=== PATIENT | male | born 1970 | race Caucasian/White ===

== ENCOUNTER 2025-06-16 11:31 | Emergency (ER) | payer OTHER, SELFPAY ==
--- OUTSIDE RECORDS SUMMARY | 2025-06-16 11:34 | XMS_ITS | Patient Health Record ---
Author Organization Formerly [facility] Address [address] [place] [address] Care Team Providers Care Knife Grinder Name Role Phone Watkins, Bob Primary Care Provider [phone] Arun Ocampo Unavailable [phone] Annie Vargas Unavailable [phone] Alice Taylor Unavailable [phone] Daniella Emerson Unavailable [phone] Chula Michaels Unavailable [phone] Allergies Allergen (clinical drug ingredient) Drug/Non Drug Allergy documented on EMR Reaction Allergy Type Onset Date Status Penicillin Unknown Drug Allergy Active Results Component Value Reference Range Notes Buprenorphine and Metabolite (Urine test) Reviewed date:02/13/2025 10:02:17 AM Interpretation: Performing Lab:[facility], [address] [facility], [place], Phone - [phone], Director - [facility] Notes/Report: Clinical Information:[id number] Buprenorphine Positive Confirmation performed by Mass Spectrometry Buprenorphine Positive Buprenorphine Conf, MS, UR 367 Cutoff=10 ng/m L Norbuprenorphine Positive Norbuprenorphine Conf, MS, UR 767 Cutoff=10 ng/mL 12 Panel Urine Drug Screen Reviewed date:07/25/2024 01:40:15 PM Interpretation: Performing Lab: Notes/Report: THC POS TIFFANI neg MOP (OPI) neg AMP neg MET neg BAR neg BZO neg MDMA neg MTD neg OXY neg PCP neg BUP POS 14 Panel Urine Drug Screen Reviewed date:06/02/2025 10:59:53 AM Interpretation: Performing Lab: Notes/Report: THC POS TIFFANI NEG MOP (OPI) NEG AMP NEG MET NEG BAR NEG BZO NEG MDMA NEG MTD NEG OXY NEG PCP NEG BUP POS TCA NEG FTY NEG 14 Panel Urine Drug Screen Reviewed date:05/04/2025 11:13:03 AM Interpretation: Performing Lab: Notes/Report: THC POS TIFFANI neg MOP (OPI) neg AMP neg MET neg BAR neg BZO neg MDMA neg MTD neg OXY neg PCP neg BUP POS TCA neg FTY neg 14 Panel Urine Drug Screen Reviewed date:04/06/2025 11:00:25 AM Interpretation: Performing Lab: Notes/Report: THC POS TIFFANI neg MOP (OPI) neg AMP neg MET neg BAR neg BZO neg MDMA neg MTD neg OXY neg PCP neg BUP POS TCA neg FTY neg 14 Panel Urine Drug Screen Reviewed date:03/09/2025 10:59:34 AM Interpretation: Performing Lab: Notes/Report: THC POS TIFFANI neg MOP (OPI) neg AMP neg MET neg BAR neg BZO neg MDMA neg MTD neg OXY neg PCP neg BUP POS TCA neg FTY neg 14 Panel Urine Drug Screen Reviewed date:02/09/2025 10:37:48 AM Interpretation: Performing Lab: Notes/Report: THC POS TIFFANI neg MOP (OPI) neg AMP neg MET neg BAR neg BZO neg MDMA neg MTD neg OXY neg PCP neg BUP POS TCA neg FTY neg 12 Panel Urine Drug Screen Reviewed date:12/14/2024 01:38:24 PM Interpretation: Performing Lab: Notes/Report: THC POS TIFFANI neg MOP (OPI) neg AMP neg MET neg BAR neg BZO neg MDMA neg MTD neg OXY neg PCP neg BUP POS 12 Panel Urine Drug Screen Reviewed date:11/18/2024 10:40:22 AM Interpretation: Performing Lab: Notes/Report: THC POS TIFFANI neg MOP (OPI) neg AMP neg MET neg BAR neg BZO neg MDMA neg MTD neg OXY neg PCP neg BUP POS 12 Panel Urine Drug Screen Reviewed date:10/19/2024 10:33:09 AM Interpretation: Performing Lab: Notes/Report: THC POS TIFFANI neg MOP (OPI) neg AMP neg MET neg BAR neg BZO neg MDMA neg MTD neg OXY neg PCP neg BUP POS 12 Panel Urine Drug Screen Reviewed date:08/23/2024 10:34:10 AM Interpretation: Performing Lab: Notes/Report: THC POS TIFFANI neg MOP (OPI) neg AMP neg MET neg BAR neg BZO neg MDMA neg MTD neg OXY neg PCP neg BUP POS 12 Panel Urine Drug Screen Reviewed date:06/27/2024 10:29:02 AM Interpretation: Performing Lab: Notes/Report: THC POS TIFFANI neg MOP (OPI) neg AMP neg MET neg BAR neg BZO neg MDMA neg MTD neg OXY neg PCP neg BUP POS Rapid Plasma Reagin (RPR) Te st With Reflex to Quantitative RPR and Confirmatory Treponema pallidum Antibodies Reviewed date:05/16/2025 09:20:33 AM Interpretation: Performing Lab:[facility], [address] [facility] Phone - [phone], Director - [facility] Notes/Report: RPR Non Reactive Non Reactive QuantiFERON-TB Gold Plus (18 1343) Reviewed date:05/16/2025 09:20:32 AM Interpretation: Performing Lab:[facility], [address] [facility] Phone - [phone], Director - [facility] Notes/Report: QuantiFERON Incubation Incubation performed. QuantiFERON-TB Gold Plus Negative Negative No response to M tuberculosis antigens detected. Infection with M tuberculosis is unlikely, but high risk individuals should be considered for additional testing (ATS/IDSA/CDC Clinical Practice Guidelines, 2017). The reference range is an Antigen minus Nil result of <0.35 IU/mL. Chemiluminescence immunoassay methodology QuantiFERON Criteria QuantiFERON-TB Gold Plus is a qualitative indirect test for M tuberculosis infection (including disease) and is intended for use in conjunction with risk assessment, radiography, and other medical and diagnostic evaluations. The QuantiFERON-TB Gold Plus result is determined by subtracting the Nil value from either TB antigen (Ag) value. The Mitogen tube serves as a control for the test. QuantiFERON TB1 Ag Value 0.04 QuantiFERON TB2 Ag Value 0.03 QuantiFERON Nil Value 0.05 QuantiFERON Mitogen Value >10.00 TSH Rfx on Abnormal to Free T4 Reviewed date:05/16/2025 09:20:32 AM Interpretation: Performing Lab:[facility], [address] [facility], Phone - [phone], Director - [facility] Notes/Report: TSH 1.350 0.450-4.500 uIU/mL CMP 14 Comprehensive Metabol ic Panel* Reviewed date:05/16/2025 09:20:32 AM Interpretation: Performing Lab:[facility], [address] [facility] Phone - [phone], Director - Shari Notes/Report: Glucose 98 70-99 mg/dL BUN 15 6-24 mg/dL Creatinine 0.84 0.76-1.27 mg/dL eGFR 102 >59 mL/min/1.73 BUN/Creatinine Ratio 18 9-20 Sodium 139 134-144 mmol/L Potassium 4.6 3.5-5.2 mmol/L Chloride 102 96-106 mmol/L Carbon Dioxide, Total 22 20-29 mmol/L Calcium 9.8 8.7-10.2 mg/dL Protein, Total 7.2 6.0-8.5 g/dL Albumin 4.5 3.8-4.9 g/dL Globulin, Total 2.7 1.5-4.5 g/dL Bilirubin, Total 0.5 0.0-1.2 mg/dL Alkaline Phosphatase 92 47-123 IU/L AST (SGOT) 26 0-40 IU/L ALT (SGPT) 25 0-44 IU/L Lipid Panel* Reviewed date:05/16/2025 09:20:32 AM Interpretation: Performing Lab[facility], [address] [facility] Phone - [phone], Director - Shari Notes/Report: Cholesterol, Total 199 100-199 mg/dL Triglycerides 137 0-149 mg/dL HDL Cholesterol 29 >39 mg/dL VLDL Cholesterol [place] 25 5-40 mg/dL LDL Chol Calc ([facility]) 145 0-99 mg/dL Hepatitis C Virus Antibody w /Rflx to Quantitative Real-time PCR (133561) Reviewed date:05/16/2025 09:20:32 AM Interpretation: Performing Lab:[facility], [address] [facility] Phone - [phone], [facility] Notes/Report: HCV Ab Reactive Non Reactive Hepatitis C Quantitation HCV Not Detected Test Information: The quanti tative range of this assay is 15 IU/mL to 100 million IU/mL. Interpretation: Positive HCV antibody screen without the presence of HCV RNA is consistent with a resolved past infection or a false positive HCV antibody. Consider repeat testing after one month. Hepatitis B Surface Antigen (HBsAg Screen) Reviewed date:05/16/2025 09:20:32 AM Interpretation: Performing Lab:[facility], [address] [facility] Phone - [phone], Director - [facility] Notes/Report: HBsAg Screen Negative Negative CBC With Differential/Platel et* Reviewed date:05/16/2025 09:20:32 AM Interpretation: Performing Lab:[facility] [place], [address] [facility] Phone - [phone], Director - [facility] Notes/Report: WBC 6.3 3.4-10.8 x10E3/uL RBC 4.64 4.14-5.80 x10E6/uL Hemoglobin 14.3 13.0-17.7 g/dL Hematocrit 44.6 37.5-51.0 % MCV 96 79-97 fL MCH 30.8 26.6-33.0 pg MCHC 32.1 31.5-35.7 g/dL RDW 13.1 11.6-15.4 % Platelets 277 150-450 x10E3/uL Neutrophils 52 Not Estab. % Lymphs 34 Not Estab. % Monocytes 7 Not Estab. % Eos 6 Not Estab. % Basos 1 Not Estab. % Neutrophils (Absolute) 3.3 1.4-7.0 x10E3/uL Lymphs (Absolute) 2.2 0.7-3.1 x10E3/uL Monocytes(Absolute) 0.5 0.1-0.9 x10E3/uL Eos (Absolute) 0.4 0.0-0.4 x10E3/uL Baso (Absolute) 0.0 0.0-0.2 x10E3/uL Immature Granulocytes 0 Not Estab. % Immature Grans (Abs) 0.0 0.0-0.1 x10E3/uL Testosterone, Serum Reviewed date:05/16/2025 09:20:32 AM Interpretation: Performing Lab:[facility] [place], [address] [facility], [place], Phone - [phone], Director - [facility] Notes/Report: Testosterone 238 264-916 ng/dL Adult male reference interval is based on a population of healthy nonobese males (BMI <30) between 19 and 39 years old. Tai et.al. JCEM 2017,102;3911-9201. PMID: 86885686. Hemoglobin A1c* Reviewed date:05/16/2025 09:20:32 AM Interpretation: Performing Lab:[facility] [place], [address] [facility] Phone - [phone], [facility] Notes/Report: Hemoglobin A1c 5.8 4.8-5.6 % . Prediabetes: 5.7 - 6.4 Diabetes: >6.4 Glycemic control for adults with diabetes: <7.0 HIV Screen *HIV 1, 2 Ab, p24 Ag (686504) Reviewed date:05/16/2025 09:20:32 AM Interpretation: Performing Lab:[facility] [place], [address] [facility] Phone - [phone], [facility] Notes/Report: HIV Ab/p24 Ag Screen Non Reactive Non Reactive HIV-1/HIV-2 antibodies and HIV-1 p24 antigen were NOT detected. There is no laboratory evidence of HIV infection. HIV Negative 14 Panel Urine Drug Screen Reviewed date:01/12/2025 09:57:57 AM Interpretation: Performing Lab: Notes/Report: THC POS TIFFANI neg MOP (OPI) neg AMP neg MET neg BAR neg BZO neg MDMA neg MTD neg OXY neg PCP neg BUP POS TCA neg FTY neg 12 Panel Urine Drug Screen Reviewed date:09/20/2024 10:29:39 AM Interpretation: Performing Lab: Notes/Report: THC POS TIFFANI neg MOP (OPI) neg AMP neg MET neg BAR neg BZO neg MDMA neg MTD neg OXY neg PCP neg BUP POS Buprenorphine and Metabolite (Urine test) Reviewed date:07/06/2024 10:22:33 AM Interpretation: Performing Lab:[facility], [address] [employer], [facility], Phone - [phone], Director - [facility] Notes/Report: Clinical Information:[id number] Buprenorphine Positive Confirmation performed by Mass Spectrometry Buprenorphine Positive Buprenorphine Conf, MS, UR 341 Cutoff=10 ng/m L Norbuprenorphine Positive Norbuprenorphine Conf, MS, UR 628 Cutoff=10 ng/mL Reason For Referral Reason Home sleep study wit h reflex to PSG if ANL Diagnosis 1 Sleep apnea in adult (G47.33) Referral Organization [facility] Referring Provider First Name Bob Referring Provider Last Name Roland Referring Provider Speciality Internal M edicine Referred Provider Specialty Sleep Medici ne General Notes Neto MUNGUIA, Erinn Whittaker 08:39:00 AM > Clinical Notes [facility], [facility], [address] [place] [address], phone [phone], fax [phone] Referral Priority Routine Medications Medication SIG (Take, Route, Frequency, Duration) Notes Start Date End Date Status Ibuprofen 800 mg TAKE 1 TABLET BY CHELE TH EVERY 8 HOURS WITH FOOD OR MILK; Duration: 30 Active Testosterone Cypionate 200 MG/ML 1 mL Intramuscular EVERY 2 WEEKS; Duration: 28 days 05/16/2025 Active Buprenorphine HCl-Naloxone HCl 4-1 MG 1 film under the tongue and allow to dissolve Sublingual twice a day; Duration: 30 days 06/02/2025 Active Buprenorphine HCl-Naloxone HCl 8-2 MG 1 film under the tongue and allow to dissolve Sublingual Once a day (AM); Duration: 30 days 06/02/2025 Active Immunizations Vaccine Route Administration Date Status Comme nts Tdap IM Intramuscular 05/05/2025 Administered Social History Tobacco Use: Social History Observation Description Date Details (start date - stop date) Current Smoker NA - NA Sex Assigned At : Social History Observation Description Sex Assigned At Male Alcohol Screen (Audit-C) Question Answer Notes Did you have a drink containing alcohol in the p ast year? No Points 0 Interpretation Negative PRAPARE Question Answer Notes Date Completed/Updated: 02/29/2024 What is your current housing situation? I have h ousing Are you worried about losing your housing? No What is the highest level of school that you have finished? 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 Check all that apply I do not have problems meeting my needs Has lack of transportation k ept you from medical appointments, meetings, work or from getting things needed for daily living? No How often do you see or talk to people that you care about and feel close to? (For example: talking to friends on the phone, visiting friends or family, going to restoration or club meetings) More than 5 times a week How stressed are you? Stress is when someone feels tense, nervous, anxious, or can\t sleep at night because their mind is troubled A little bit In the past year have you sp ent more than 2 nights in a row in a care home, long term, fpc center, or juvenile correctional facility? No Are you a refugee? No What country are you from? [place] Do you feel physically and e motionally safe where you currently live? Yes In the past year, have you b een afraid of your partner or ex-partner? No PRAPARE Score: 4 Tobacco Control (Standard) Question Answer Notes Tobacco use: Current smoker Additional Findings: Tobacco user Chews tobacco Problems Problem Type SNOMED Code ICD Code Onset Dates Problem Status W/U Status Risk Notes Problem Tobacco user (279932454) Nicotine dependence, unspecified, uncomplicated (F17.200) Active confirmed Problem Overweight (834324473) Over weight (E66.3) Active confirmed Problem Obstructive sleep apnea syndrome (22003661) Sleep apnea in adult (G47.33) Active confirmed Problem Recurrent major depression in remission (24601147) Recurrent major depressive disorder, in partial remission (F33.41) 018 Active confirmed Problem Obese class I (finding) (863231236980554) Obesity (BMI 30.0-34.9) (E66.9) Active confirmed Problem Insomnia (333304635) Insomnia, unspecified type (G47.00) Active confirmed Problem Gastroesophageal reflux disease without esophagitis (333679790) Gastroesophageal reflux disease without esophagitis (K21.9) Active confirmed Problem Opioid dependence (22590513) Opioid use disorder, severe (F11.20) Active confirmed Problem Weight loss advised (340842725) Weight loss counseling, encounter for (Z71.3) Active confirmed Problem Body mass index 30+ - obesity (711240702) Body mass index (BMI) of 30.0-30.9 in adult (Z68.30) Active confirmed Problem Obesity (000762740) Obesity, unspecified classification, unspecified obesity type, unspecified whether serious comorbidity present (E66.9) Active confirmed Problem Opioid use disorder (8110645336) Opioid use disorder (F11.99) Active confirmed Problem 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 (E29.1) Active confirmed Vital Signs Heart Rate 69 /min 06/02/2025 Temperature 98.3 degrees Fahrenheit 05/05/2025 Respiratory Rate 16 /min 06/02/2025 Blood pressure diastolic 80 mm Hg 06/02/2025 Oximetry 97 % 06/02/2025 Height 69 inches in 06/02/2025 Blood pressure systolic 122 mm Hg 06/02/2025 Weight 216 lbs lbs 06/02/2025 BMI 31.89 kg/m2 06/02/2025 Encounters Encounter Location Date Provider Diagnosis [address] [address] 06/27/2024 Daniella Szlufik Opioid use disorder F11.99 ; Obesity (BMI 30.0-34.9) E66.9 ; Nicotine dependence, unspecified, uncomplicated F17.200 and Nutritional counseling Z71.[address] [address] 07/25/2024 Daniella Szlufik Opioid use disorder F11.[address] [address] 08/23/2024 Daniella Szlufik Opioid use disorder, severe F11.[address] [address] 09/20/2024 Daniella Szlufik Opioid use disorder F11.[address] [address] 10/19/2024 Daniella Szlufik Opioid use disorder F11.99 ; Nutritional counseling Z71.3 and Nicotine dependence, unspecified, uncomplicated F17.[address] [address] 11/18/2024 Jentony Vargas Opioid use disorder F11.99 ; Obesity (BMI 30.0-34.9) E66.9 and Nicotine dependence, unspecified, uncomplicated F17.[address] [address] 12/14/2024 Daniella Szlufik Opioid use disorder F11.99 and Over weight E66.[address] [address] 01/12/2025 Daniella Szlufik Opioid use disorder F11.99 and Over weight E66.3 [facility] [address] [place] [address] 02/09/2025 Alice Laraalivia Opioid use disorder F11.99 ; Nicotine dependence, unspecified, uncomplicated F17.200 and Over weight E66.[address] [address] 03/09/2025 Daniella Szlufik Opioid use disorder F11.99 and Over weight E66.[address] [address] 04/06/2025 Chula Xenia Opioid use disorder F11.99 and Over weight E66.[address] [address] 05/04/2025 Chula Xenia Opioid use disorder F11.99 and Over weight E66.[address] [address] 05/05/2025 Bob Watkins Fatigue R53.83 ; Sleep apnea in adult G47.33 ; Exposure to potential infection Z20.9 ; Lipid screening Z13.220 ; Screening for diabetes mellitus Z13.1 ; Over weight E66.3 ; Former smoker Z87.891 and Immunization counseling Z71.[address] [address] 05/08/2025 Bob Watkins Exposure to potentia l infection Z20.9 ; Screening for diabetes mellitus Z13.1 ; Fatigue R53.83 and Lipid screening Z13.[address] [address] 06/02/2025 Chula Xenia Over weight E66.3 an d Opioid use disorder, severe F11.[address] [address] 06/14/2025 Bob Watkins [address] [place] [address] 05/16/2025 Bob Watkins Testosterone deficiency in male E29.[address] [place] [address] 06/07/2025 Bob Watkins Assessments Encounter Date Diagnosis (ICD Code) Assessment Notes Treatment Notes Treatment Clinical Notes Section Notes 05/16/2025 Testosterone deficiency in male (ICD-10 - E29.1) 06/02/2025 Over weight (ICD-10 - E66.3) 06/02/2025 Opioid use disorder, severe (ICD-10 - F11.20) 05/05/2025 Sleep apnea in adult (ICD-10 - G47.33) 05/08/2025 Exposure to potential infection (ICD-10 - Z20.9) 02/09/2025 Opioid use disorder (ICD-10 - F11.99) 03/09/2025 Over weight (ICD-10 - E66.3) 03/09/2025 Opioid use disorder (ICD-10 - F11.99) 04/06/2025 Over weight (ICD-10 - E66.3) 04/06/2025 Opioid use disorder (ICD-10 - F11.99) 05/04/2025 Over weight (ICD-10 - E66.3) 05/04/2025 Opioid use disorder (ICD-10 - F11.99) 06/27/2024 Obesity (BMI 30.0-34.9) (ICD-10 - E66.9) 10/19/2024 Opioid use disorder (ICD-10 - F11.99) 05/05/2025 Fatigue (ICD-10 - R53.83) 06/27/2024 Opioid use disorder (ICD-10 - F11.99) 07/25/2024 Opioid use disorder (ICD-10 - F11.99) 08/23/2024 Opioid use disorder, severe (ICD-10 - F11.20) 09/20/2024 Opioid use disorder (ICD-10 - F11.99) 11/18/2024 Obesity (BMI 30.0-34.9) (ICD-10 - E66.9) 11/18/2024 Opioid use disorder (ICD-10 - F11.99) 12/14/2024 Over weight (ICD-10 - E66.3) 12/14/2024 Opioid use disorder (ICD-10 - F11.99) 01/12/2025 Over weight (ICD-10 - E66.3) 01/12/2025 Opioid use disorder (ICD-10 - F11.99) 02/09/2025 Nicotine dependence, unspecified, uncomplicated (ICD-10 - F17.200) 06/27/2024 Nicotine dependence, unspecified, uncomplicated (ICD-10 - F17.200) 10/19/2024 Nutritional counseling (ICD-10 - Z71.3) 11/18/2024 Nicotine dependence, unspecified, uncomplicated (ICD-10 - F17.200) 05/05/2025 Exposure to potential infection (ICD-10 - Z20.9) 05/08/2025 Screening for diabetes mellitus (ICD-10 - Z13.1) 05/08/2025 Fatigue (ICD-10 - R53.83) 06/27/2024 Nutritional counseling (ICD-10 - Z71.3) 05/05/2025 Lipid screening (ICD-10 - Z13.220) 10/19/2024 Nicotine dependence, unspecified, uncomplicated (ICD-10 - F17.200) 02/09/2025 Over weight (ICD-10 - E66.3) 05/08/2025 Lipid screening (ICD-10 - Z13.220) 05/05/2025 Screening for diabetes mellitus (ICD-10 - Z13.1) 05/05/2025 Over weight (ICD-10 - E66.3) 05/05/2025 Former smoker (ICD-10 - Z87.891) 05/05/2025 Immunization counseling (ICD-10 - Z71.89) Declined flu vax, covid vax. Accespts Tdap. [facility] get [facility]rix at [facility] or [facility]. 06/27/2024 Other Patient agrees to take medication as prescribed. Discussed medication side effects, adverse effects, risks, benefits, as well as interactions. Encouraged non-use of opioids and other illicit substances. Has naloxone. Discontinuing buprenorphine increases the risk of overdose upon return to illicit opioid use. Use of alcohol or benzodiazepines with buprenorphine increases the risk of overdose and . Education provided about safe storage of medications. Encouraged participation in recovery groups/counseling services. Contact office with questions or concerns. 07/25/2024 Other Patient agrees to take medication as prescribed. Discussed medication side effects, adverse effects, risks, benefits, as well as interactions. Encouraged non-use of opioids and other illicit substances. Has naloxone. Discontinuing buprenorphine increases the risk of overdose upon return to illicit opioid use. Use of alcohol or benzodiazepines with buprenorphine increases the risk of overdose and . Education provided about safe storage of medications. Encouraged participation in recovery groups/counseling services. Contact office with questions or concerns. 08/23/2024 Other Patient agrees to take medication as prescribed. Discussed medication side effects, adverse effects, risks, benefits, as well as interactions. Encouraged non-use of opioids and other illicit substances. Has naloxone. Discontinuing buprenorphine increases the risk of overdose upon return to illicit opioid use. Use of alcohol or benzodiazepines with buprenorphine increases the risk of overdose and . Education provided about safe storage of medications. Encouraged participation in recovery groups/counseling services. Contact office with questions or concerns. 09/20/2024 Other Patient agrees to take medication as prescribed. Discussed medication side effects, adverse effects, risks, benefits, as well as interactions. Encouraged non-use of opioids and other illicit substances. Has naloxone. Discontinuing buprenorphine increases the risk of overdose upon return to illicit opioid use. Use of alcohol or benzodiazepines with buprenorphine increases the risk of overdose and . Education provided about safe storage of medications. Encouraged participation in recovery groups/counseling services. Contact office with questions or concerns. 10/19/2024 Other Patient agrees to take medication as prescribed. Discussed medication side effects, adverse effects, risks, benefits, as well as interactions. Encouraged non-use of opioids and other illicit substances. Has naloxone. Discontinuing buprenorphine increases the risk of overdose upon return to illicit opioid use. Use of alcohol or benzodiazepines with buprenorphine increases the risk of overdose and . Education provided about safe storage of medications. Encouraged participation in recovery groups/counseling services. Contact office with questions or concerns. Patient may self-administer their own medications or may self-administer their own oral medications per [facility] Protocol. 11/18/2024 Other Discussed medication side effects, adverse effects, risks, benefits, as well as interactions. Encouraged non-use of opioids. Has naloxone. Recommended participation in recovery groups and/or counseling services. May contact office with questions or concerns. Patient may self-administer their own medications or may self-administer their own oral medications per [facility] Protocol. 12/14/2024 Other Patient agrees to take medication as prescribed. Discussed medication side effects, adverse effects, risks, benefits, as well as interactions. Encouraged non-use of opioids and other illicit substances. Has naloxone. Discontinuing buprenorphine increases the risk of overdose upon return to illicit opioid use. Use of alcohol or benzodiazepines with buprenorphine increases the risk of overdose and . Education provided about safe storage of medications. Encouraged participation in recovery groups/counseling services. Contact office with questions or concerns. Patient may self-administer their own medications or may self-administer their own oral medications per [facility]oper Protocol. 01/12/2025 Other Patient agrees to take medication as prescribed. Discussed medication side effects, adverse effects, risks, benefits, as well as interactions. Encouraged non-use of opioids and other illicit substances. Has naloxone. Discontinuing buprenorphine increases the risk of overdose upon return to illicit opioid use. Use of alcohol or benzodiazepines with buprenorphine increases the risk of overdose and . Education provided about safe storage of medications. Encouraged participation in recovery groups/counseling services. Contact office with questions or concerns. Patient may self-administer their own medications or may self-administer their own oral medications per [facility] Protocol. 02/09/2025 Other Patient agrees to take medication as prescribed. Discussed medication side effects, adverse effects, risks, benefits, as well as interactions. Encouraged non-use of opioids. Encouraged participation in recovery groups. Patient may contact office with questions or concerns. 03/09/2025 Other Patient agrees to take medication as prescribed. Discussed medication side effects, adverse effects, risks, benefits, as well as interactions. Encouraged non-use of opioids and other illicit substances. Has naloxone. Discontinuing buprenorphine increases the risk of overdose upon return to illicit opioid use. Use of alcohol or benzodiazepines with buprenorphine increases the risk of overdose and . Education provided about safe storage of medications. Encouraged participation in recovery groups/counseling services. Contact office with questions or concerns. Patient may self-administer their own medications or may self-administer their own oral medications per [facility] Protocol. 04/06/2025 Other Patient agrees to take medication as prescribed. Discussed medication side effects, adverse effects, risks, benefits, as well as interactions. Encouraged non-use of opioids and other illicit substances. Has naloxone. Discontinuing buprenorphine increases the risk of overdose upon return to illicit opioid use. Use of alcohol or benzodiazepines with buprenorphine increases the risk of overdose and . Education provided about safe storage of medications. Encouraged participation in recovery groups/counseling services. Contact office with questions or concerns. Patient may self-administer their own medications or may self-administer their own oral medications per [facility]oper Protocol. 05/04/2025 Other Patient agrees to take medication as prescribed. Discussed medication side effects, adverse effects, risks, benefits, as well as interactions. Encouraged non-use of opioids and other illicit substances. Has naloxone. Discontinuing buprenorphine increases the risk of overdose upon return to illicit opioid use. Use of alcohol or benzodiazepines with buprenorphine increases the risk of overdose and . Education provided about safe storage of medications. Encouraged participation in recovery groups/counseling services. Contact office with questions or concerns. Patient may self-administer their own medications or may self-administer their own oral medications per [facility] Protocol. 06/02/2025 Other Patient agrees to take medication as prescribed. Discussed medication side effects, adverse effects, risks, benefits, as well as interactions. Encouraged non-use of opioids and other illicit substances. Has naloxone. Discontinuing buprenorphine increases the risk of overdose upon return to illicit opioid use. Use of alcohol or benzodiazepines with buprenorphine increases the risk of overdose and . Education provided about safe storage of medications. Encouraged participation in recovery groups/counseling services. Contact office with questions or concerns. Patient may self-administer their own medications or may self-administer their own oral medications per [facility]oper Protocol. Plan Of Treatment Future Test Test Name Order Date Low Dose CT: Lung Cancer Screening 05/05 Insurance Providers Payer Name Payer Address Payer Phone Subscriber Number Group Number Insured Name Patient Relationship to Insured Coverage Start Date Coverage End Date MEDICAID [address] [address] [id number] Bob Cannon Self - patient is the insured 5 5 [facility] Attn Claims Department [address] [place] [address] [id number] Bob Cannon Self - patient is the insured 4 [facility] [address] [address] [place] [address] [id number] Bob Cannon Self - patient is the insured 6 7 [facility] [address] [address] [place] [address] [id number] Bob Cannon Self - patient is the insured 8 8 [facility] Attn Claims Department [address] [place] [address] [id number] Bob Cannon Self - patient is the insured 1 [address] [place] [address] [id number] Bob Cannon Self - patient is the insured 6 0 [employer] [address] [place] [address] [id number] Bob Cannon Self - patient is the insured 0 4 [facility] Attn Claims Department [address] [place] [address] [id number] Bob Cannon Self - patient is the insured 9 3 [facility] [address] [place] [phone] [id number] Bob Cannon Self - patient is the insured 5 Medications Administered Medication Instructions Date of Administration Dosage Notes Sublocade 10/26/2019 300 mg Executive Manager: Indior SN: [id number]. Patient tolerated well Medical (General) History Medical History History ICD Code Recurrent major depressive disorder, in partial remission Opioid use disorder, severe Obesity (BMI 30.0-34.9) Tobacco dependence Surgical History Surgery Date(Month/Year) c-spine 2016 Hospitalization History Reason Date(Month/Year)
--- OUTSIDE RECORDS SUMMARY | 2025-06-16 11:34 | XMS_ITS | Clinical Summary ---
Author Organization [facility] [employer] Address [address] [place] [address] Care Team Providers Care Assembler Lay Ups Name Role Phone Magda Coronado SUPPLIER SPECIALIST-MANAGER INVENTORY CONTROL Primary Care Provider Source Comments [facility],non-owned Affiliates and Associated Physician Practices is amultiple site organization consisting of ambulatory clinics and hospital sitesin [place], [place], [place] and [place]. This disclosure is being madepursuant to the Care Everywhere program and may not contain all information available regarding this patient. Last updated 18.[facility] [employer] Allergies Active Allergy Reactions Criticality Noted Date Comments Penicillins Rash Low 12/07/2015 Medications * Be aware that medications may not be up to date on this document. Alwaysverify current medications with the patient. methocarbamol (ROBAXIN) 500 MG tablet Take 1 Tab by mouth every 6 hours as needed for Muscle Spasms 40 Tab 1 6 Active HYDROcodone-sasha taminophen (NORCO) 5-325 MG tablet Take 1 Tab by mouth every 4 hours as needed for Pain 50 Tab 0 6 Active Additional Information Patient not taking.Reported on 03/05/2016 Social History Tobacco Use Types Packs/Day Years Used Date Smoking Tobacco: Every Day Cigarettes Smokeless Tobacco: Never Tobacco Cessation:Ready to Q uit: No; Counseling Given: Yes Alcohol Use Standard Drinks/Week Comments No 0 (1 standard drink = 0.6 oz pur e alcohol) Sex and Gender Information Value Date Recorded Sex Assigned at Not on file Legal Sex Male 9:09 AM CDT Gender Identity Not on file Sexual Orientation Not on file 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 Not on file Not on file Not on file Last Filed Vital Signs Vital Sign Reading Time Taken Comments Blood Pressure 113/63 12/19/2015 8:04 AM CDT Pulse 69 12/19/2015 8:04 AM CDT Temperature 36.6 C (97.8 F) 12/19/2015 8:04 AM CDT Respiratory Rate 18 12/19/2015 8:04 AM CDT Oxygen Saturation 97% 12/19/2015 8:04 AM CDT Inhaled Oxygen Concentration - - Weight 92.1 kg (203 lb) 03/05/2016 10:41 AM CDT Height 175.3 cm (5' 9) 03/05/2016 10:41 AM CDT Body Mass Index 29.98 03/05/2016 10:41 AM CDT Plan of Treatment Health Maintenance Due Date Last Done Comments COLOGUARD (AGES 45-75) - COL ON CA SCREENING 1968 COLON MONITORING 1968 COLONOSCOPY - COLON CA SCREENING 1968 CT COLONOGRAPHY - COLON CA SCREENING 1968 Colorectal Cancer Screening 1968 FIT - COLON CA SCREENING 1968 FLEX SIG - COLON CA SCREENING 1968 LIPID TESTING 1968 HIV SCREENING 1983 HEPATITIS C SCREENING 03/09/1986 DTAP/TDAP/TD VACCINES (1 - Tdap) 1987 HEPATITIS B VACCINE (1 of 3 - 19+ 3-dose series) 1987 PNEUMOCOCCAL VACCINE 50+ (1 of 1 - PCV) 2018 ZOSTER VACCINE (1 of 2) 2018 DEPRESSION SCREENING 07/27/2024 COVID-19 VACCINE (1 - 2024-2 6 season) 2025 INFLUENZA VACCINE (#1) 2025 HIB VACCINE Aged Out No longer eligi ble based on patient's age to complete this topic HPV VACCINE Aged Out No longer eligi ble based on patient's age to complete this topic MENINGOCOCCAL (Group B) VACC INE SHARED DECISION-MAKING Aged Out No longer eligibl e based on patient's age to complete this topic MENINGOCOCCAL GROUPS A/C/Y/W VACCINE Aged Out No longer eligible b ased on patient's age to complete this topic Medical Devices Implanted Type Area Health Advisor Device Identifier Shelf Expiration Date Model / Serial / Lot Vanesa Joe michelle Jar 2.0cc - [id number] Implanted:Qty : 1 on 12/18/2015 by Mannie Lew MD at [facility] Spine Cervical Spinal [employer] 10/29/2017 [id number] / [id number] / Space Peek 6 X 16 X 14mm Implanted:Qty : 2 on 12/18/2015 by Mannie Lew MD at [facility] Spine Cervical Med[employer] 11/20/2023 [id number] / / [id number] Space Peek 7 X 16 X 14mm Implanted:Qty : 1 on 12/18/2015 by Mannie Lew MD at [facility] Spine Cervical [employer] 10/26/2023 [id number] / / [id number] Plate Ant Cerv Assem 60mm Implanted:Qty : 1 on 12/18/2015 by Mannie Lew MD at [facility] Spine Cervical Med[employer] [id number] / / Scrw Self Drill Sujey 4.0 X 15 Implanted:Qty : 2 on 12/18/2015 by Mannie Lew MD at [facility] Spine Cervical [employer] [id number] / / Scrw Self Drill Sujey 4.0 X 17 Implanted:Qty : 4 on 12/18/2015 by Mannie Lew MD at [facility] Spine Cervical [employer] Spine [id number] / / Insurance MEDICAID - [place] Advance Directives * Full Code (Latest Code Status on File) Date Activated Date Inactivated Comments 12/18/2015 4:31 PM 12/19/2015 1:49 PM Care Teams Assembler Lay Ups Relationship Specialty Start Date End Date Magda Coronado APRN-MANAGER INVENTORY CONTROL [address] [place] [address] PCP - General Nurse Practitioner Family 11/16/15
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
--- OUTSIDE RECORDS SUMMARY | 2025-06-16 11:34 | XMS_ITS | Clinical Summary ---
Author Organization [facility] Address [address], [place] [address] Phone Care Team Providers Care Sign Language Interpreter Name Role Phone Provider, None Primary Care Provider Unavailabl e Allergies Active Allergy Reactions Criticality Noted Date Comments Penicillin G Unknown 11/23/2018 Medications gabapentin (NEURONTIN) 300 MG Capsule Take 300 mg by mouth 3 times daily. Active venlafaxine (EFFEXOR-XR) 150 MG CAPSULE SR 24 HR Take 150 mg by mouth daily. Active albuterol (VENTOLIN HFA) 108 (90 Base) MCG/ACT Aerosol Solution take 2 Puffs by inhalation every 4 hours as needed. Active albuterol 108 (90 Base) MCG/ACT Aerosol Solution take 2 Puffs by inhalation every 6 hours as needed for Wheezing. 6.7 g 5 Active methylPREDNISol one (MEDROL DOSPACK) 4 MG Tablet Therapy Pack See product package insert for dosing schedule 21 Tablet 5 Active buprenorphine-n aloxone (Suboxone) 8-2 MG FILM by Sublingual route. Active Active Problems Problem Noted Date Diagnosed Date Cervical radiculopathy at C6 11/30/2018 Muscle weakness 11/30/2018 Family History Medical History Relation Name Comments No Known Problems Mother Relation Name Status Comments Father Other Mother Alive Social History Tobacco Use Types Packs/Day Years Used Date Smoking Tobacco: Former Cigarettes 0.5 35 Smokeless Tobacco: Never Tobacco Cessation:Counseling Given: Not Answered Alcohol Use Standard Drinks/Week Comments Not Currently 0 (1 standard drink = 0.6 oz pur e alcohol) Sex and Gender Information Value Date Recorded Sex Assigned at Not on file Legal Sex Male 7:22 PM CDT Gender Identity Not on file Sexual Orientation Not on file Last Filed Vital Signs Vital Sign Reading Time Taken Comments Blood Pressure 145/105 02/23/2025 8:16 PM CDT Pulse 72 02/23/2025 8:16 PM CDT Temperature 35.9 C (96.7 F) 02/23/2025 8:16 PM CDT Respiratory Rate 20 02/23/2025 8:16 PM CDT Oxygen Saturation 95% 02/23/2025 8:16 PM CDT Inhaled Oxygen Concentration - - Weight 95.3 kg (210 lb) 02/23/2025 8:16 PM CDT Height 175.3 cm (5' 9) 02/23/2025 8:16 PM CDT Body Mass Index 31.01 02/23/2025 8:16 PM CDT Plan of Treatment Health Maintenance Due Date Last Done Comments Varicella Immunization (1 of 2 - 13+ 2-dose series) 1981 Hepatitis B Immunization (1 of 3 - 19+ 3-dose series) 1987 Cologuard 2013 Colonoscopy 2013 Colorectal Cancer Screening 2013 Immunochemical Fecal Occult Blood 2013 Pneumococcal Immunization (5 0+ years) (1 of 1 - PCV) 2018 Zoster Immunization (1 of 2) 2018 PSA Discussion 2023 Influenza Immunization (#1) 2025 SARS-COV-2 Immunization (2 - season) 2025 02/12/2021 Respiratory Syncytial Virus (RSV) Immunization (Adult) (1 - 1-dose 75+ series) 2043 DTaP/Tdap/Td Immunization Discontinued 08/23/2018 TdaP Immunization Completed 08/23/2018 Human Papillomavirus (HPV) Immunization Aged Out No longer eligible b ased on patient's age to complete this topic Meningococcal Immunization (ACWY) Aged Out No longer eligible based on patient's age to complete this topic Rotavirus Immunization Aged Out No lo nger eligible based on patient's age to complete this topic Insurance MEDICAID [employer] Care Teams Sign Language Interpreter Relationship Specialty Start Date End Date Provider, None DC PCP - General 11/03/24
[2025-06-16 11:40] VITALS: BP 136/86; PULSE 65; RESP 14; TEMP 36.6; O2SAT 97
--- NOTE | 2025-06-16 11:57 | ED_ITS ---
HPI - URI/Sore Throat General Chief Complaint: Upper Respiratory Infection Stated Complaint: poss bronchitis Time Seen by Provider: 06/16/25 11:53 Source: patient and RN notes reviewed Mode of arrival: ambulatory Limitations: no limitations History of Present Illness HPI Narrative: 55-year-old male presents concern for 3 week history of cough and chest congestion. Reports he gets bronchitis couple times ear. He denies any fever, body aches, chills, sweats. He reports [id number] medications are not helping MD elicited complaint: cough Related Data Home Medications ?Medication ?Instructions ?Recorded ?Confirmed ?Last Taken ?Type buprenorphine 4 mg-naloxone 1 mg film 06/16/25 Unknow n History sublingual film buprenorphine 8 mg-naloxone 2 mg film 06/16/25 Unknow n History sublingual film testosterone cypionate 200 mg/mL mg 06/16/25 Unknown History intramuscular oil Allergies Allergy/AdvReac Type Severity Reaction Status Date / Time Penicillins Allergy Rash Verified 06/16/25 11:48 Review of Systems Review of Systems: CONSTITUTIONAL: Denies malaise, chills, sweats, or fever. EYES: Denies visual changes, redness, or discharge. ENT: Denies rhinorrhea, congestion, sinus pain, otalgia and sore throat. CARDIOVASCULAR: Denies chest pain, palpitations, or edema. RESPIRATORY: Reports cough and chest congestion. Denies dyspnea. GASTROINTESTINAL: Denies abdominal pain, nausea, vomiting, diarrhea SKIN: Denies rash or itching. MUSCULOSKELETAL: Denies myalgia. NEUROLOGIC: Denies headache. All systems reviewed & are unremarkable except as noted in HPI and below PMFSH Comments At time of signature, agree with nursing past medical, surgical, social and family history. There is no relevant family history pertinent to the presenting complaint Exam Narrative: GENERAL: Well-appearing, well-nourished, and in no acute distress. HEAD: Normocephalic EYES: PERRLA, conjunctivae clear ENT: Nares clear, turbinates edematous and erythematous, clear discharge. Mucous membranes moist. TM pearly pryor with dull light reflex bilaterally; no tragal tenderness. Oropharynx not erythematous without lesions. Tonsils not enlarged and without exudate, no drooling, no hoarseness, no trismus, uvula midline. NECK: Supple. No lymphadenopathy CHEST: Clear to auscultation, breath sounds equal. No wheezing, rhonchi, rales, or stridor. No respiratory distress, speaks in full sentences. HEART: Regular rate and rhythm. No murmur heard. SKIN: Warm, dry, no rash. NEURO: Alert and oriented x3. PSYCH: Normal mood and affect Course Course Emergency Course: Patient is aware of diagnosis, understands and agrees to treatment plan. Anticipatory guidance given. Patient agrees to follow-up as directed and is aware of reasons to seek care at the emergency department. Portions of this record may have been created with voice recognition software Level of Care: Express Care Visit Vital Signs Vital signs: Vital Signs Temperature 98 F 06/16/25 11:40 Pulse Rate 65 06/16/25 11:40 Respiratory Rate 14 06/16/25 11:40 Blood Pressure 136/86 06/16/25 11:40 Pulse Oximetry 97 06/16/25 11:40 Oxygen Delivery Room Air 06/16/25 11:40 Temperature 98 F 06/16/25 11:40 Pulse Rate 65 06/16/25 11:40 Respiratory Rate 14 06/16/25 11:40 Blood Pressure 136/86 06/16/25 11:40 Pulse Oximetry 97 06/16/25 11:40 Oxygen Delivery Room Air 06/16/25 11:40 Reviewed. MDM - URI/Sore Throat MDM Narrative Medical decision making narrative: Differential diagnosis considered: Zamora virus, strep pharyngitis, allergic rhinitis, upper respiratory tract infection, sinusitis, rhinosinusitis, nasopharyngitis. viral pharyngitis, otitis media, otitis externa, pneumonia, bronchitis, viral cough syndrome, viral syndrome, and influenza. Exam findings show no acute concerns or changes; patient is non-toxic appearing and is in no distress. Patient is appropriate for outpatient treatment and follow-up. Lab Data Attestation: I reviewed the patient's lab results. Critical Care Time Critical Care Time Critical Care Time: No Discharge Plan Discharge Clinical Impression: Upper respiratory infection with cough and congestion Patient Disposition: Home Condition: Stable Instructions: Antibiotic Form, Acute Cough (ED) Additional Instructions: 1) Please follow-up with your primary care doctor in the next 1-2 days. 2) If you have any worsening of symptoms or any other urgent concerns please go to the ER. 3) Please take medications as prescribed and continue taking your home medications as usual. 4) Please read and follow information included in discharge instructions. Patient Language: Bhutanese Prescriptions: New azithromycin [Zithromax Z-Yonis] 250 mg tablet See Rx Instructions .ROUTE .COMPLEX Qty: 6 0RF Rx Instructions: take 500 mg today (day 1), then 250 mg for 4 days (days 2-5) methylprednisolone [Medrol (Yonis)] 4 mg tablets,dose pack See Rx Instructions .ROUTE .COMPLEX Qty: 21 0RF Rx Instructions: orally per package directions No Action testosterone cypionate 200 mg/mL oil buprenorphine-naloxone 8-2 mg film buprenorphine-naloxone 4-1 mg film Follow-up/Referrals: Bob Watkins MD [Primary Care Provider, Hospitalist] Stand Alone Forms: Work/School Release IP Time of Disposition: 12:06
== END 2025-06-16 12:11 | disposition home or self-care (01) ==
PROVIDERS: Emergency Provider Nurse Practitioner; PCP Internal Medicine
DX: J06.9 Acute upper respiratory infection, unspecified (principal); R05.9 Cough, unspecified
CPT/HCPCS: 99213; G0463